=== PATIENT | female | born 1985 | race Caucasian/White ===

== ENCOUNTER 2018-07-10 08:36 | Day surgery (SDC) | payer OTHER, MEDICAID, SELFPAY ==
[2018-06-27 08:35] VITALS: BMI 31.1
[2018-07-10] VITALS (7 sets, daily range): BP systolic 91–123; BP diastolic 53–80; PULSE 58–82; RESP 13–18; TEMP 36.1–36.7; O2SAT 96–100; BMI 30.7
--- NOTE | 2018-07-10 | PATH_ITS ---
[facility] Accession Number: [id number] . 01 Material submitted: . cervix - CERVICAL BIOPSY . 01 Clinical history: . A: CERVICAL BIOPSY SUTURE IS 6:00, LONG IS 12:00 UNTAGGED SPECIMEN IS ENDOCERVIX . 02 Diagnosis: Cervix, Excision: High-grade squamous intraepithelial neoplasia (DAVID-3). No evidence of invasive carcinoma. [facility]/07/13/2018 . 02 Comment: High-grade squamous intraepithelial neoplasia is present less than 0.5 mm from the ectocervical-inked margin in the 3 o'clock to 6 o'clock quadrant. . . . . . 02 Electronically signed: . Kanchan Fowler MD, Pathologist NPI- [id number] . 01 Gross description: . Received in formalin, labeled cervical biopsy sutured: short 6 o'clock, long 12 o'clock, untagged specimen is endocervix, are two cervical excisions. Excision #1 (1.5 cm 12 o'clock to 6 o'clock, 2.3 cm 3 o'clock to 9 o'clock, 0.3 cm in depth) is oriented with two sutures (short-6 o'clock, long-12 o'clock) and has johns-pink smooth shiny and wright-johns rough mucosa. No nodules, masses or lesions are identified. The endocervical margin is inked orange and the possible ectocervical and stromal margins are inked blue. Radially sectioned and entirely submitted clockwise from 12 o'clock as follows: (A1) 12 o'clock to 3 o'clock; (A2) 3 o'clock to 6 o'clock; (A3) 6 o'clock to 9 o'clock; (A4) 9 o'clock to 12 o'clock. . Excision #2 is an unoriented conical shaped excision (diameter-1.2 x 1.0 cm, 0.3 cm in depth) with johns-pink smooth shiny and rough mucosa. No nodules, masses or lesions are identified. The endocervical margin is inked orange and the possible ectocervical and stromal margins are inked blue. Radially sectioned and entirely submitted in cassettes A5-A8. ([id number]) /MRV . 02 Microscopic: . Immunohistochemical stains for p16 were performed on blocks A1 and A2 in order to evaluate for high-grade squamous intraepithelial lesion. Block A1 is negative for block nuclear and cytoplasmic reactivity. Block A2 was positive for areas of block nuclear and cytoplasmic reactivity consistent with high-grade squamous intraepithelial lesion. The control stain was appropriate. . * This test was developed and its performance characteristics determined by [facility]. It has not been cleared or approved by the U.S. Food and Drug Administration. The FDA has determined that such clearance or approval is not necessary. This test is used for clinical purposes. It should not be regarded as investigational or for research. . 02 Pathologist provided ICD-10: D06.9 . 02 CPT . 544061, [id number] Performed at: 01 [facility] [address] [facility], [place], [place] [id number] MD Roberth Pompa MD Phone: [phone] Performed at: 02 [facility] [address] [place], [place] [id number] MD Kanchan Fowler MD Phone: [phone]
[2018-07-10] MEDS: LACTATED RINGERS 1,000 ML 100 ML IV (09:06)
--- NOTE | 2018-07-10 10:05 | PM.PREOP ---
Pre-operative Note Interval Note History & Physical reviewed/Exam performed by Physician: Yes Changes to H&P: No
--- NOTE | 2018-07-10 10:05 | PM.HP.1 ---
History of Present Illness Date Patient Seen: 07/10/18 Time Patient Seen: 10:06 Chief complaint: 75024 Narrative: Patient is a 32-year-old with high-grade KAVEH of the endocervix and DAVID 1 of the ectocervix here for LEEP cone biopsy of the cervix Patient History Medical History Anxiety (Acute) Bipolar 1 disorder (Acute) IUD (intrauterine device) in place (Acute) Surgical History (Updated 06/28/17 @ 05:52 by Conversion Provider) Status post loop electrosurgical excision procedure (LEEP) of cervix Social History household members: family and children Smoking Status: Current every day smoker alcohol intake: current Family & Social History Social History: household members family,children Tobacco & Substance use: Smoking Status Current every day smoker alcohol intake current Substance Use Type marijuana Meds Home Medications Medication Instructions Recorded Confirmed Type levonorgestrel 20 mcg/24 hours (5 INTRAUTERINE each 05/10/18 05/10/18 History yrs) 52 mg intrauterine device Allergies Allergy/AdvReac Type Severity Reaction Status Date / Time No Known Drug Allergies Allergy Verified 07/10/18 08:52 Exam Vital Signs (past 8 hours): - 07/10/18 08:55 Temperature 97.4 F L Pulse Rate 78 Respiratory Rate 16 Blood Pressure 123/76 Pulse Oximetry 96 Oxygen Delivery Method Room Air Narrative Exam Narrative: HEENT: No thyromegaly, no anterior cervical or supraclavicular lymphadenopathy. Lungs:Clear to auscultation bilaterally, no wheezes. Cardiovascular: Regular rate and rhythm, no murmurs, rubs, or gallops. Abdomen: No scars. No hepatosplenomegaly. No masses palpable. External genitalia: Normal Vagina: Normal Cervix: Normal Bimanual exam: 6 Week size uterus. Mobile. Rectal: No masses. Colposcopic biopsies: High-grade KAVEH of the endocervix, DAVID 1 of the ectocervix Assessment & Plan Assessment & Plan narrative: Assessment: 32-year-old with cervical dysplasia including a high-grade KAVEH of the endocervix and DAVID 1 of the ectocervix Plan: LEEP cone biopsy of the cervix including the endocervix The risks, benefits, and alternatives to the procedure were explained to the patient. The risks including bleeding and infection. The patient understands these risks and agrees to proceed. A full PAR-Q was held and consent form was signed. Time Spent With Patient Time with patient: less than 15 minutes
--- NOTE | 2018-07-10 10:32 | SUR.OPER ---
Lithotomy on padded OR bed, head on pillow, arms secured on padded arm boards at <90 degrees abduction. Legs secured in padded yellow fins stirrups.
[2018-07-10] MEDS: OXYCODONE/ACETAMINOPHEN 5/325 TABLET 1 TAB PO (11:15)
--- NOTE | 2018-07-10 12:36 | SUR.PHASEII ---
1155 mario alberto pad dry, no drainage , pain 2/10 , dressed ready to go, steady on feet
--- NOTE | 2018-07-11 06:59 | PM.GYNOP.1 ---
Operative Date/Time/Diagnoses Date of procedure: 07/10/18 Time of procedure: 10:30 Pre-op diagnosis: High grade KAVEH in endocervix DAVID 1 of ectocervix Post-op diagnosis: same Procedure: Procedures Operation Date: 07/10/18 09:45 Actual Procedures Side Surgeon eduardo Jonas MD Indications: High-grade KAVEH of endocervix DAVID 1 of ectocervix Surgeon: Michelle Jonas Anesthesia Type: General (LMA) Operative Notes Findings: Lugol's light areas surrounding the cervical canal Closure Type: not applicable Specimen(s): other (LEEP cone biopsy with short suture at 6 and long suture at 12, endocervix) Estimated blood loss (mL): 10 Blood products transfused: none Procedure in detail: After informed consent was obtained, the patient was taken to the operating room where she was placed in the dorsal supine position. After adequate LMA general anesthesia was achieved, she was placed in the dorsal lithotomy position, and prepped and draped in the usual sterile fashion. A time-out was performed. A plastic coated bivalve speculum was placed into the vagina with suction attached. A plastic coated single-tooth tenaculum was placed on the anterior lip of the cervix. Cervix was coated with Lugol solution. There was a Lugol's light area surrounding the cervical canal. Using the large loop the Lugol's light area was excised. There was a small area towards the posterior lip that remained and this was excised and then sutured to the larger piece and tagged with a short suture. The 12 o'clock position was tagged with a long suture. using the smaller loop the endocervical canal was excised. The base of the cone was cauterized with the Bovie for hemostasis. sponge, lap, and instrument counts were correct x2. The patient tolerated the procedure well, and was taken to PACU in stable condition. Complications: none Post-operative Condition: stable Disposition: PACU Plan for aftercare: Home after recovery
== END 2018-07-10 12:00 | disposition home or self-care (01) ==
PROVIDERS: PCP Nurse Practitioner; Visit Provider Obstetrics & Gynecology
PROC: 0UBC7ZZ Excision of Cervix, Via Natural or Artificial Opening (ICD-10-PCS; CPT 57522; principal; 2018-07-10 09:45)
DX: D06.9 Carcinoma in situ of cervix, unspecified (principal); F41.9 Anxiety disorder, unspecified; F17.210 Nicotine dependence, cigarettes, uncomplicated
CPT/HCPCS: 57522; J1885; J2250; J2405; J2704; J3010